=== PATIENT | female | born 1995 | race Caucasian/White ===

== ENCOUNTER → 2019-11-23 | Emergency (ER) | payer MEDICAID ==
[~2019-11-23] VITALS: Ht 160 cm; Wt 59.9 kg
[~2019-11-23] MED LIST: ACETAMINOPHEN 325 MG TAB PO ONE
[2019-11-23 21:31] VITALS: BP 124/67
== END | disposition home or self-care (01) ==
LOC: ER 21:11
DX: S93.402A Sprain of unspecified ligament of left ankle, initial encounter (principal); W17.89XA Other fall from one level to another, initial encounter; Y93.01 Activity, walking, marching and hiking; Y92.89 Other specified places as the place of occurrence of the external cause; Y99.8 Other external cause status
CPT/HCPCS: 73610; 73630